=== PATIENT | male | born 1945 | race African-American/Black ===

== ENCOUNTER 2019-12-03 01:51 | Emergency (ER) | payer SELFPAY ==
[~2019-12-03] VITALS: Ht 176.5 cm; Wt 77.3 kg
[2019-12-03 02:02] VITALS: Ht 176.5 cm; Wt 77.3 kg
[2019-12-03] MEDS ORDERED: BYSTOLIC20 MG PO (02:05)
[2019-12-03] MEDS ORDERED: ADALAT CC90 MG PO (02:05)
[2019-12-03] MEDS ORDERED: [UNRECOGNIZED DRUG - OTHER] (02:06)
[2019-12-03] MEDS ORDERED: GLIPIZIDE10 MG PO (02:06)
[2019-12-03 03:09] VITALS: BP 156/77
== END 2019-12-03 03:09 | disposition home or self-care (01) ==
LOC: D.ER 01:51
DX: R31.9 Hematuria, unspecified (principal); Z86.73 Personal history of transient ischemic attack (TIA), and cerebral infarction without residual deficits; R73.03 Prediabetes; I10 Essential (primary) hypertension; Z79.84 Long term (current) use of oral hypoglycemic drugs